=== PATIENT | male | born 1955 | race Caucasian/White ===

== ENCOUNTER 2017-06-28 12:25 | Emergency (ER) | payer SELFPAY ==
[~2017-06-28] VITALS: Ht 165.1 cm; Wt 79.4 kg
[2017-06-28 12:47] VITALS: BP 153/88
[2017-06-28 14:18] VITALS: BP 153/88
--- NOTE | 2017-06-28 14:19 | NUR ---
PATIENT IS A 62 YO MALE BIB SELF FOR DIZZINESS AWAKE AND ALERT ABLE TO AMBULATE. SEEN IN OVERFLOW BY DR. KEATING. POATIENT STABLE FOR DISCHARGE.
--- NOTE | 2017-06-28 14:20 | NUR ---
Patient discharged with v/s stable. Written and verbal after care instructions given and explained. Patient alert, oriented and verbalized understanding of instructions. with steady gait. All questions addressed prior to discharge. ID band removed. Patient advised to follow up with PMD. Rx of MECLAZINE AND ZOFRAN given. Patient educated on indication of medication including possible reaction and side effects. Opportunity to ask questions provided and answered.
== END 2017-06-28 14:20 | disposition home or self-care (01) ==
LOC: MED 12:25
DX: R42 Dizziness and giddiness (principal); E11.9 Type 2 diabetes mellitus without complications; I10 Essential (primary) hypertension
CPT/HCPCS: 82948; 93005; 99283